=== PATIENT | male | born 1985 | race African-American/Black ===

== ENCOUNTER 2021-05-02 21:56 | Emergency (ER) | payer OTHER ==
[2021-05-02 22:04] VITALS: RESP 18; TEMP 98
--- NOTE | 2021-05-02 22:30 | ED ---
Overdose HPI - General Chief Complaint: Overdose Stated Complaint: Overdose Time Seen by Provider: 05/02/21 22:01 Source: patient, RN notes reviewed, old records reviewed Mode of arrival: ambulatory Limitations: no limitations - History of Present Illness Initial Comments: This is a 35-year-old male to the emergency for today. Patient presents today for evaluation regards to overdose brought in by EMS, patient does admit to taking fentanyl today. Did take an overdose currently awake and alert without complaint. MD Complaint: accidental overdose -: minutes(s) How Overdose Was Discovered: called 911 Context: Intentional Overdose: drug/ETOH problems Context: Accidental Overdose: wanted to get high Associated Symptoms: nausea/vomiting Treatments Prior to Arrival: none - Related Data Allergies Allergy/AdvReac Type Severity Reaction Status Date / Time No Known Allergies Allergy Verified 05/02/21 22:03 Review of Systems ROS Statement: Those systems with pertinent positive or pertinent negative responses have been documented in the HPI. ROS Other: All systems not noted in ROS Statement are negative. Past Medical History Past Medical History: No Reported History History of Any Multi-Drug Resistant Organisms: None Reported Past Surgical History: Hernia Repair Past Psychological History: No Psychological Hx Reported Smoking Status: Vaper Past Alcohol Use History: None Reported Past Drug Use History: Heroin General Exam Limitations: no limitations General appearance: alert, in no apparent distress, anxious Head exam: Present: atraumatic, normocephalic, normal inspection Eye exam: Present: normal appearance, PERRL, EOMI. Absent: scleral icterus, conjunctival injection, periorbital swelling ENT exam: Present: normal exam, mucous membranes moist Neck exam: Present: normal inspection. Absent: tenderness, meningismus, lymphadenopathy Respiratory exam: Present: normal lung sounds bilaterally. Absent: respiratory distress, wheezes, rales, rhonchi, stridor Cardiovascular Exam: Present: regular rate, normal rhythm, normal heart sounds. Absent: systolic murmur, diastolic murmur, rubs, gallop, clicks GI/Abdominal exam: Present: soft, normal bowel sounds. Absent: distended, tenderness, guarding, rebound, rigid Extremities exam: Present: normal inspection, full ROM, normal capillary refill. Absent: tenderness, pedal edema, joint swelling, calf tenderness Back exam: Present: normal inspection Neurological exam: Present: alert, oriented X3, CN II-XII intact Psychiatric exam: Present: normal affect, normal mood Skin exam: Present: warm, dry, intact, normal color. Absent: rash Course Vital Signs 05/02/21 05/02/21 21:59 22:36 Temperature 98 F Pulse Rate 83 85 Respiratory 18 18 Rate Blood Pressure 136/84 125/79 O2 Sat by Pulse 96 96 Oximetry - Reevaluation(s) Reevaluation #1: Medical record is reviewed Patient symptoms are improved here in the ER and remained improved Patient informed results and questions answered Medical Decision Making - Medical Decision Making 35 male to ER with acute opiate overdose. Patient did require Narcan for resuscitation, currently awake and alert not homicidal or suicidal and can be discharged home Disposition Clinical Impression: Accidental drug overdose, Poisoning by opiates and related narcotics, other, Drug overdose Disposition: HOME SELF-CARE Condition: Good Instructions (If sedation given, give patient instructions): Adult Overdose (ED) Is patient prescribed a controlled substance at d/c from ED?: No Referrals: None,Stated [Primary Care Provider] - 1-2 days
[2021-05-02 22:41] VITALS: BP 125/79; PULSE 85
== END 2021-05-02 23:57 | disposition home or self-care (01) ==
LOC: EC 21:56
DX: T40.491A Poisoning by other synthetic narcotics, accidental (unintentional), initial encounter (principal); F17.290 Nicotine dependence, other tobacco product, uncomplicated
CPT/HCPCS: 99284